=== PATIENT | female | born 1975 | race Caucasian/White ===

== ENCOUNTER → 2016-11-11 | Outpatient (CLI) | payer MEDICAID ==
[~2016-11-11] MED LIST: Ciprofloxacin500 MG PO; HYDROCHLOROTHIA1 TAB PO
[2016-11-11 10:22] LABS: URINE BILIRUBIN - DIPSTICK NEGATIVE (NEG); URINE BLOOD NEGATIVE (NEG)
[2016-11-11 10:33] LABS: HEMOGLOBIN 15.4 g/dL (12.2-16.2); LYMPH # 3.2 K/mm3 (0.7-4.5); LYMPH % 20.4 % (10-50.0)
[2016-11-11 10:41] LABS: URINE SQUAMOUS CELLS OCC #/hpf (0-5)
[2016-11-11 11:14] LABS: BUN 9 mg/dL (7-18)
[2016-11-11 11:15] LABS: GFR (ESTIMATED) 92 ML/MIN (59-)
[2016-11-11 14:27] LABS: NEUTROPHILS 70 % (42-76)
== END ==
LOC: LAB 10:12
PROVIDERS: Obstetrics & Gynecology
DX: N92.0 Excessive and frequent menstruation with regular cycle (principal); N80.0 Endometriosis of uterus; Z01.812 Encounter for preprocedural laboratory examination

== ENCOUNTER → 2017-03-25 | Outpatient (CLI) | payer MEDICAID ==
[~2017-03-25] MED LIST changes: +HYDROCODONE-APA1 TA1 PO
[2017-03-25 09:23] LABS: HEMOGLOBIN 14.3 g/dL (12.2-16.2); LYMPH # 2.8 K/mm3 (0.7-4.5); LYMPH % 24.4 % (10-50.0)
[2017-03-25 09:26] LABS: URINE BILIRUBIN - DIPSTICK NEGATIVE (NEG); URINE BLOOD 1+ (NEG)
[2017-03-25 09:40] LABS: URINE SQUAMOUS CELLS OCC #/hpf (0-5)
[2017-03-25 10:42] LABS: BUN 11 mg/dL (7-18)
[2017-03-25 10:47] LABS: GFR (ESTIMATED) 92 ML/MIN (59-)
== END ==
LOC: LAB 09:07
PROVIDERS: Obstetrics & Gynecology
DX: N92.0 Excessive and frequent menstruation with regular cycle (principal); Z01.812 Encounter for preprocedural laboratory examination

== ENCOUNTER 2017-03-29 06:00 | Observation (INO) | payer MEDICAID ==
[2017-03-29] VITALS (18 sets, daily range): BP systolic 103–146; BP diastolic 67–95
[~2017-03-29] VITALS: Ht 165.1 cm; Wt 104.8 kg
[~2017-03-29 06:00] MED LIST changes: -HYDROCODONE-APA1 TA1 PO
--- NOTE | 2017-03-29 08:35 | Operative Note ---
Procedure/Operative Record Date of Procedure: 03/29/17 Referring physician: Dr. Dewey Pre-op diagnosis: Dysfunctional uterine bleeding Post-op diagnosis: Dysfunctional uterine bleeding Procedure performed: Total vaginal hysterectomy Surgeon: To No Creative Recruiter(s): KIRSTIN Washington Anesthesia: Gen., VIRGINIA Mccabe Indications: Dysfunctional uterine bleeding Description of procedure: After the patient was prepped and draped usual fashion and general anesthesia was administered, examination under anesthesia revealed a boggy uterus, with no adnexal masses. A weighted speculum was placed within the posterior fourchette of the vagina, and the cervix was grasped with a double-tooth tenaculum, and retracted toward the introitus. The cervix was circumcised with a knife, and the vaginal mucosa was sharply and bluntly dissected free. A posterior colpotomy incision was made with Fabio scissors, and the long lip of the weighted speculum was placed within the posterior peritoneum. The uterosacral ligaments on either side were Giulia clamped, cut, and Giulia suture with #1 Vicryl, as were the cardinal ligaments and uterine vessels. The anterior peritoneum was entered with Fabio scissors, and a long right angle retractor was placed within it. The uterus was flipped anteriorly, and the ovarian pedicles were crossclamped and cut, thus removing the boggy uterine specimen. These pedicles were Giulia sutured, and then free tied with #1 Vicryl. The tubes and ovaries were inspected and found to be normal, and remain in situ. The posterior vaginal cuff was run and locked with #1 Vicryl, to include the uterosacral ligament pedicles for vaginal support, in a Sears fashion, to reduce the enterocele. Anterior peritoneum was grasped with a long Allis clamp, and closed with a running pursestring suture of 0 Vicryl, and pulled tight. The vaginal cuff was closed with a running locked anteroposterior suture of #1 Vicryl. The urine was clear in the Caruso catheter. The sponge and needle counts correct. The estimated blood loss was 300 mL. The patient tolerated the procedure well, was taken to PACU in excellent condition. EBL (ml): 300 Complications: None Specimens: Uterus at 0881
--- NOTE | 2017-03-29 08:36 | Anesthesia Record ---
Anesthesia Record Part I Total IV fluids: 1300 EBL (ml): 150 Urine Output: 200 B/P: 150/94 % SaO2: 88 Pulse: 97 Resps: 14 Temp: 97.4 Patient is: Awake, Stable Stable to PACU at: 0835 at 0836
--- NOTE | 2017-03-29 08:37 | Anesthesia Record ---
Anesthesia Record Part II Discharge time: 904 Destination: Second Floor PACU nurse assessment review? Yes Patient is: Awake, Stable Anesthesia complications? No at 0836
[2017-03-29 10:25] LABS: HEMOGLOBIN 12.9 g/dL (12.2-16.2)
--- NOTE | 2017-03-29 12:39 | ACUTE CARE PROGRESS NOTE (QUA) ---
Progress Notes Subjective Date 03/29/17 Time 1237 Assessment/Plan This inpt stay is expected to cross 2 MNs from start of care No Comments: This is day of surgery. Surgery is been explained to the patient. She is afebrile. Her vital signs are stable. Her oxygen saturations have been a little bit on the low side (low 90s), but she is a smoker and has not been doing deep breathing well. Her pain is under control. Urine output is good. Impression: Stable. at 1237
--- NOTE | 2017-03-29 16:06 | PHARMACY CLINIC NOTE ---
Patient Demographics Patient Demographics Admission date: 03/29/17 Date: 03/29/17 Time: 1606 Allergies Coded Allergies: No Known Allergies (03/29/17) HEIGHT- FT: 5 IN: 5.00 K.781 VTE General Information Labs: Laboratory Tests 03/29 0950 Hematology Hgb (12.2 - 16.2 g/dL) 12.9 Hct (37.0 - 47.0 %) 40.6 Disclaimer The following section includes nursing documentation that has been pulled in for pharmacy review. Patient's VTE score: 3 Patient's VTE Risk: LOW RISK VTE prophylaxis NQF [id number] VTE prophylaxis ordered? Yes Type of prophylaxis/treatment: Lovenox at 1607
[2017-03-29 16:38] LABS: URINE BILIRUBIN - DIPSTICK NEGATIVE (NEG); URINE BLOOD NEGATIVE (NEG)
[2017-03-30 04:00] VITALS: BP 128/86
[2017-03-30 07:59] VITALS: BP 109/71
--- NOTE | 2017-03-30 08:27 | ACUTE CARE PROGRESS NOTE (QUA) ---
Progress Notes Subjective Date 03/30/17 Time 0827 Note This is postop day number 1. The patient is afebrile. Vital signs stable. Abdomen soft. Catheter is out and she has voided well. Hemoglobin 12.9 g. She is eating and ambulating and will be discharged today. Assessment/Plan This inpt stay is expected to cross 2 MNs from start of care No at 0827
--- NOTE | 2017-03-30 08:29 | DISCHARGE SUMMARY STANDARD ---
Discharge Summary Date of admission: 03/29/17 Date of discharge: 03/30/17 Patient condition: Stable Discharge diagnosis (es): Dysfunctional uterine bleeding Hospital course: This 41-year-old white female was admitted for definitive treatment of the above diagnoses. On the date of admission, she was taken the operating room, where she underwent a total vaginal hysterectomy. Her adnexa remaining in situ. Postoperatively, the patient has done well. She is eating and ambulating. Passing flatus. Her Caruso catheter has been removed, and she is voiding well. Her hemoglobin is 12.9 g. She is not a smoker. She is discharged home on the first postoperative day on Percocet 5/325 (number 30), 1 by mouth every 6 hours when necessary pain. She is given appropriate instructions as to diet and exercise, and she is to return the office in 2 weeks for follow-up. at 7308
[2017-03-30] MEDS ORDERED: HYDROCODONE-APA1 TA1 PO (08:31)
[2017-03-30 11:30] VITALS: BP 109/71
== END 2017-03-30 11:30 | disposition home or self-care (01) ==
LOC: SDC 06:00 → OB 06:32 → SDC 07:30 → OB 09:51
PROVIDERS: Obstetrics & Gynecology
PROC: 0UT97ZZ Resection of Uterus, Via Natural or Artificial Opening (ICD-10-PCS; principal; 2017-03-29 07:30)
PROC: 0UTC7ZZ Resection of Cervix, Via Natural or Artificial Opening (ICD-10-PCS; principal; 2017-03-29 07:30)
DX: N93.8 Other specified abnormal uterine and vaginal bleeding (principal)
CPT/HCPCS: G0378; J0131; J2405

== ENCOUNTER → 2017-04-21 | Outpatient (CLI) | payer MEDICAID ==
[~2017-04-21] MED LIST changes: +HYDROCODONE-APA1 TA1 PO
--- NOTE | 2017-04-22 08:18 | RADIOLOGY REPORT PS360 ---
US PELVIS-TRANSVAGINAL ONLY HISTORY: TORSION OF PARAOVARIAN CYST ORDERING PHYSICIAN: To No MD PATIENT AGE: 41 years COMPARISON: 10/22/2016 FINDINGS: There has been an interval hysterectomy There is a large left ovarian cyst measuring up to 7 cm. Most of the left ovary is occupied by this cyst. Remnant of tissue is noted medially containing blood flow. The right ovary is 3.5 x 1.9 cm and has an unremarkable appearance with blood flow noted. No cul-de-sac fluid evident. IMPRESSION: Large left ovarian cyst. No obvious torsion. Blood flow is present in both ovaries.
== END ==
LOC: RAD 15:40
DX: N83.519 Torsion of ovary and ovarian pedicle, unspecified side (principal)

== ENCOUNTER 2017-04-22 09:00 | Day surgery (SDC) | payer MEDICAID ==
[~2017-04-22] VITALS: Ht 165.1 cm; Wt 104.3 kg
[2017-04-22 10:28] LABS: HEMOGLOBIN 14.1 g/dL (12.2-16.2); LYMPH # 2.9 K/mm3 (0.7-4.5); LYMPH % 19.7 % (10-50.0)
--- NOTE | 2017-04-22 11:44 | Operative Note ---
Procedure/Operative Record Date of Procedure: 04/22/17 Pre-op diagnosis: 1. Pelvic pain. 2. LEFT ovarian cyst, undergoing torsion. Post-op diagnosis: 1. Pelvic pain. 2. LEFT ovarian cyst, undergoing torsion. Procedure performed: 1. Diagnostic laparoscopy. 2. Aspiration of LEFT ovarian cyst. Surgeon: To No Anesthesia: VIRGINIA Munoz Indications: 1. Pelvic pain. 2. LEFT ovarian cyst, undergoing torsion. Description of procedure: After the patient was prepped and draped in usual fashion and general anesthesia was administered, a moist sponge stick was placed in the vagina for elevation of the vaginal cuff during the laparoscopy. After appropriate regloving, the skin on either side of the umbilicus was tented up with towel clips. A small incision was made in the base the umbilicus with a knife, and a Veress needle was inserted into the abdominal cavity. After demonstration of negative pressure, and adequate phisoperitoneum was created with carbon dioxide gas. The Veress needle was then replaced with a trocar and cannula, using the [employer] system, and the trocar replaced with a laparoscope. We absent, and the RIGHT adnexa appeared normal. On the LEFT side, a large thin-walled cyst primarily replaced the LEFT ovary. There was no other pathology noted. Using a needle aspirator, the cyst was punctured and deflated for approximately 20 mL of clear fluid. There was no bleeding. The puncture site was cauterized, and the pelvis was suctioned of fluid. The phisoperitoneum was reduced, and the instruments were removed under direct visualization. The skin incision was infused with a dilute solution of Marcaine, as a local anesthetic, and closed with subcuticular suture of 3-0 Vicryl. The wound was appropriately dressed. The sponge stick was removed from the vagina. The patient tolerated the procedure well, and was taken to PACU in excellent condition. She will be discharged today, if her vital signs are stable. EBL (ml): 20 Complications: None Specimens: None at 7904
--- NOTE | 2017-04-22 11:59 | Anesthesia Record ---
Anesthesia Record Part II Discharge time: 1220 Destination: Same day surgery PACU nurse assessment review? Yes Patient is: Stable Anesthesia complications? No at 1154
--- NOTE | 2017-04-22 11:59 | Anesthesia Record ---
Anesthesia Record Part I Total IV fluids: 1000 EBL (ml): 20 Urine Output: 25 B/P: 124/74 % SaO2: 95 Pulse: 89 Resps: 16 Temp: 97.6 Patient is: Drowsy, Nasal O2, Stable Stable to PACU at: 1150 at 1158
[2017-04-22 13:56] LABS: HEMOGLOBIN 13.3 g/dL (12.2-16.2)
[2017-04-22 14:14] VITALS: BP 118/77
== END 2017-04-22 14:10 | disposition home or self-care (01) ==
LOC: SDC 09:00
PROVIDERS: Obstetrics & Gynecology
PROC: 0U914ZZ Drainage of Left Ovary, Percutaneous Endoscopic Approach (ICD-10-PCS; principal; 2017-04-22 11:00)
DX: N83.202 Unspecified ovarian cyst, left side (principal); R10.2 Pelvic and perineal pain
CPT/HCPCS: J0131; J1050; J2405; J2710

== ENCOUNTER → 2017-05-17 | Outpatient (CLI) | payer MEDICAID ==
--- NOTE | 2017-05-17 16:23 | RADIOLOGY REPORT PS360 ---
US PELVIS-TRANSVAGINAL ONLY HISTORY: Follow-up ovarian cyst PELVIC PAIN,OVARIAN CYST ORDERING PHYSICIAN: To No MD PATIENT AGE: 41 years COMPARISON: 04/21/2017 FINDINGS: Status post hysterectomy. Left ovary measures 3 x 2.5 cm and contains multiple small follicles. Previously noted dominant left ovarian cyst is no longer apparent. The largest cyst on the left is approximately 1 cm. The right ovary is 2.7 x 1.8 cm. Unremarkable appearance of the right ovary. No cul-de-sac fluid evident IMPRESSION: Resolved large left ovarian cyst. There are small left ovarian follicles now present
== END ==
LOC: RAD 15:09
DX: R10.2 Pelvic and perineal pain (principal); N83.202 Unspecified ovarian cyst, left side